=== PATIENT | female | born 1980 | race Asian ===

== ENCOUNTER 2017-08-11 01:58 | Emergency (ER) | payer OTHER ==
[2017-08-11] MEDS ORDERED: Ondansetron ODT TAB* 4 MG PO ONE (02:28)
[2017-08-11] MEDS ORDERED: Famotidine TAB* 20 MG PO ONE (02:28)
--- NOTE | 2017-08-11 06:44 | ED ---
Oliver Montesinos Jade, scribed for Garrett Jacobs MD on 08/11/17 at 0310 . Substance Abuse/Use - HPI Summary HPI Summary: Pt is a 37 y/o female BIBA for alcohol intoxication. She was witnessed by [employer] being carried up the hill to [place] after drinking a fishbowl. 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 She denies any pain or hitting her head. Pt also denies any health problems or medications. She is a level 5 caveat, therefore a proper history and ROS was not able to be obtained. - History Of Current Complaint Chief Complaint: EDSubstanceAbuse Stated Complaint: ETOH Time Seen by Provider: 08/11/17 02:13 Hx Obtained From: Patient, EMS Hx From Patient Unobtainable Due To: Altered Mental Status - Intoxicated Ingestion History: Type/Name Of Drug - Alcohol Overdose Characteristics: Oral Character: Stuporous Aggravating Factor(s): Nothing Alleviating Factor(s): Nothing Associated Signs And Symptoms: Nausea, Vomiting - Allergies/Home Medications Allergies/Adverse Reactions: Allergies Allergy/AdvReac Type Severity Reaction Status Date / Time No Known Allergies Allergy Verified 08/11/17 02:07 PMH/Surg Hx/FS Hx/Imm Hx Infectious Disease History: No Infectious Disease History: Denies: Traveled Outside the [place] in Last 30 Days Review of Systems Negative: Fever Positive: Vomiting, Nausea Positive: Other - Alcohol intoxication All Other Systems Reviewed And Are Negative: Yes Physical Exam - Summary Physical Exam Summary: Appearance: Well appearing, no pain distress. Dirt on feet. Blue vomit on neck. Smells like alcohol. Skin: warm, dry, reflects adequate perfusion. No abrasions. Head/face: normal. No evidence of injury to head. Eyes: EOMI, pupils dilated and reactive to light ENT: normal Neck: supple, non-tender Respiratory: CTA, breath sounds present Cardiovascular: RRR, pulses symmetrical Abdomen: non-tender, soft Bowel Sounds: present Musculoskeletal: normal, strength/ROM intact Neuro: normal, sensory motor intact, A&Ox3 Triage Information Reviewed: Yes Vital Signs On Initial Exam: Initial Vitals Temp Pulse Resp BP Pulse Ox 98.5 F 75 16 99/65 98 08/11/17 02:07 08/11/17 02:07 08/11/17 02:07 08/11/17 02:07 08/11/17 02:07 Vital Signs Reviewed: Yes Diagnostics - Vital Signs Vital Signs Temp Pulse Resp BP Pulse Ox 08/11/17 02:07 98.5 F 75 16 99/65 98 - Laboratory Lab Statement: Any lab studies that have been ordered have been reviewed, and results considered in the medical decision making process. Course/Dx - Course Course Of Treatment: Patient reports drinking a discounted fishbowl last night. She sobered over several hours and had no further vomiting following medication. She demonstrated return of functional capacity as evidenced by clear speech, steady gait and logical thinking. She was arranged a safe ride home. - Diagnoses Provider Diagnoses: Alcohol intoxication, Vomiting Discharge - Sign-Out/Discharge Documenting (check all that apply): Discharge/Admit/Transfer - Discharge - Discharge Plan Condition: Improved Disposition: HOME Patient Education Materials: Alcohol Intoxication (ED) Print Language: TURKISH Referrals: [facility] [Provider Group] Additional Instructions: Do not drink to excess. [place] diet as tolerated. Drink plenty of nonalcoholic clear fluids. Do not drive today. Return if worse, new symptoms or other concerns. - Billing Disposition and Condition Condition: IMPROVED Disposition: Home The documentation as recorded by the Oliver fay Jade accurately reflects the service I personally performed and the decisions made by , Garrett Jacobs MD.
[2017-08-11 06:51] VITALS: BP 97/69
== END 2017-08-11 06:59 | disposition home or self-care (01) ==
LOC: ED 01:58
DX: F10.129 Alcohol abuse with intoxication, unspecified (principal); R11.10 Vomiting, unspecified
CPT/HCPCS: 99283; A9270-GY